=== PATIENT | female | born 1970 | race Caucasian/White ===

== ENCOUNTER → 2018-02-06 06:59 | Outpatient (CLI) | payer OTHER, SELFPAY ==
--- NOTE | 2018-02-06 10:54 | NEURO_ITS ---
NCS and/or EMG Patient Report Ordering Doctor: Mindy Doss DATE OF SERVICE: 02/06/18 This is a bilateral upper extremity nerve conduction study performed on this 47- year-old female with seizures in both hands well his right elbow soreness. She is healthy otherwise with no neck pain or diabetes. Bilateral upper extremity sensory and motor nerve conduction studies are performed demonstrating prolongation of the median motor and sensory distal latencies bilaterally with mild reduction of amplitudes, somewhat worse on the right side. Conduction velocities bilaterally are mildly slowed from the median motor responses as well. The ulnar motor and sensory and radial sensory responses are normal. The median F waves are mildly prolonged compared to the ulnar F waves. Impression: This is an abnormal bilateral upper extremity nerve conduction study consistent with moderate to severe carpal tunnel syndrome at the wrists bilaterally.
== END ==
PROVIDERS: Family Provider Student in an Organized Health Care Education/Training Program; PCP Student in an Organized Health Care Education/Training Program; Visit Provider Nurse Practitioner Adult Health
DX: R20.0 Anesthesia of skin (principal); R20.2 Paresthesia of skin
CPT/HCPCS: 95913

== ENCOUNTER 2020-02-18 16:32 | Emergency (ER) | payer BC, SELFPAY ==
[2020-02-18 16:36] VITALS: BP 124/91; PULSE 71; RESP 25; TEMP 37.9; O2SAT 97; BMI 39.5
--- NOTE | 2020-02-18 16:53 | EKG12_ITS ---
Test Reason : SOB Blood Pressure : / mmHG Vent. Rate : 076 BPM Atrial Rate : 076 BPM P-R Int : 144 ms QRS Dur : 098 ms QT Int : 398 ms P-R-T Axes : 058 026 028 degrees QTc Int : 447 ms Normal sinus rhythm Normal ECG Confirmed by RORO HOWARD ([id number]), associate entertainment editor TOMY MERCADO ([id number] on 02/20/2020 10:15:16 AM Referred By: DREW/LUZ Confirmed By:RORO HOWARD
--- NOTE | 2020-02-18 17:28 | ED.DCSUM_ITS ---
- ER Visit Summary Date of Service: 02/18/20 Chief Complaint: Cough and shortness of breath History of Present Illness: The patient is a 50 F past medical history of prior DVT and history of asthma. Said since January 29 that is nearly 3 weeks ago now she has had intermittent fever of around 100 nonproductive cough and states that she started to get short of breath. Sitting a coworker had similar symptoms before she did but he never got a firm diagnosis. She has been treated recently with antibiotics initially started on Bactrim. Switch to another antibiotic because her primary care physician's office thought she had a sinusitis and a UTI both. And then last was on a third antibiotic Cipro. She has had no obvious COVID exposure. And has had no travel. She does complain of decreased appetite decreased smell and taste. Physical Examination: Middle-aged female no acute distress vital signs stable pulse ox 97% room air no signs of hypoxia. Temperature 100.2. She does not look septic or toxic. She is not dehydrated. H EENT exam unremarkable. Moist with membranes. Posterior pharynx unremarkable. Neck nontender. Lungs dry cough no rales rhonchi or wheezing. Heart regular rhythm no murmur. Abdomen soft nontender. Normal bowel sounds no peritoneal signs. Extremities moves all 4. Calves nontender without edema or cords. Neurologically she is awake and alert. Test Results: Chest x-ray no acute abnormality portable 1 view read both myself and radiologist. CTA of the chest no acute abnormality. No PE read by the radiologist and reviewed by me. EKG normal sinus rhythm rate of 76 no acute signs of LA or ischemia. CBC white count of 11. Hemoglobin 14. No bands. Chemistries unremarkable. Troponin normal. D-dimer was elevated that is why the CAT scan of the chest was done and was read as negative. Influenza AMB negative. I attempted to get the patient COVID tested but was not approved by the state. Emergency Department Course and Treatment: Her eye symptoms. May be viral. I did call the [facility] hotline and she does not meet criteria for COVID-19 testing. She will undergo labs and a chest x-ray. Repeat exam the patient is doing well at 2050 p.m. She is comfortable being discharged home and will follow-up as an outpatient. Treatment Plan: Fluids and rest. Tylenol Motrin for any fever. Follow-up with your doctor. Return if worse. Disposition: Discharge Impression: Viral URI Rule out COVID-19 This note was generated with [employer] dictation software. It may contain incorrect words, spelling, and punctuation that were not noted in review of the chart prior to signing ED Disposition - Plan for ED Patient: Referrals: Adla Flaherty DO [Primary Care Provider] -
--- NOTE | 2020-02-18 17:35 | RAD_ITS ---
STUDY: X-RAY CHEST REASON FOR EXAM: Female, 50 years old. Symptoms OF COVID 19 SINCE JANUARY -- INCREASED SOB TECHNIQUE: Single AP portable view of the chest. COMPARISON: None. FINDINGS: The lungs are clear and expanded. There is no demonstrated pleural abnormality. Normal size heart. Normal mediastinum and ady. Normal visualized pulmonary arteries. Normal visualized aortic arch and descending thoracic aorta. Normal visualized thoracic spine. Normal visualized ribs, clavicles, and shoulders. There is no demonstrated abnormality of the visualized soft tissue structures of the upper abdomen. RAD/Chest 1 View (Portable) IMPRESSION: Normal x-ray examination of the chest. Electronically Signed: Jameel Perea MD at 17:47 EDT , Service support ,
[2020-02-18 17:54] VITALS: O2SAT 95
[2020-02-18 18:18] LABS: Absolute Lymphocyte Count 4.22 X10^3/uL (0.83-4.51); Absolute Neutrophil Count 6.6 X10^3/uL (2.0-7.7); Basophil# 0.06 X10^3/uL; Basophil% 0.5 % (0-1); Eosinophil# 0.11 X10^3/uL; Eosinophils% 0.9 % (0-5); Hematocrit 43.4 % (37-47); Hemoglobin 14.8 g/dL (12.0-15.0); Lymphocyte # 4.22 X10^3/ul (4.0); Lymphocyte % 35.8 % (19-41); Mean Corp Hgb Conc 34.1 g/dL (32-36); Mean Corpuscular Hgb 28.7 pg (27.0-32.0); Mean Corpuscular Volume 84.1 fL (81-99); Mean Platelet Vol. 10.1 fl (6.2-12.0); Monocyte# 0.73 X10^3/uL; Monocyte% 6.2 % (0-10); NRBC Flagged by Analyzer 0 % (0-5); Neutrophil # 6.63 X10^3/uL (2.7-7.7); Neutrophil % 56.3 % (47-70); Platelet Count 269 K/mm3 (150-450); RBC Distribution Width CV 12.7 % (11.6-14.6); RBC Distribution Width SD 38.7 fl (35.1-43.9); Red Blood Count 5.16 M/mm3 (4.2-5.4); White Blood Count 11.8 K/mm3 (4.4-11.0)
[2020-02-18 18:25] LABS: D-Dimer Quantitative (DVT/PE) 3.06 FEU/ug/m (0.27-0.49)
[2020-02-18 18:29] LABS: Anion Gap 8 (5-15); BUN 9 mg/dL (7-18); BUN/Creat Ratio 8.3 RATIO (10-20); Calcium,Total 8.7 mg/dL (8.5-10.1); Chloride 108 mmol/L (98-107); Creatinine, Serum 1.08 mg/dL (0.55-1.02); EST Glomerular Filtration Rate 57 mL/min (>60); Est Glom Filt Rate - Afr Amer 69 mL/min (>60); Estimated Creatinine Clearance 54.41 ml/min; Glucose 88 mg/dL (74-106); Potassium 3.8 mmol/L (3.5-5.1); Sodium Level 138 mmol/L (136-145)
--- NOTE | 2020-02-18 19:14 | CT_ITS ---
STUDY: CTA CHEST REASON FOR EXAM: Female, 50 years old. Short of breath. Elevated d-dimer. RADIATION DOSAGE (If Supplied By Facility): CTDIvol = ( 13.04 ) mGy, DLP = ( 475.13 ) mGycm TECHNIQUE: The examination was performed with the intravenous administration of IV 100mL Isovue-370. Post-processing of the angiographic images was performed, with multiplanar reformation and 3D reconstruction. Individualized dose optimization techniques were used for this CT. COMPARISON: None. FINDINGS: Normal enhancement of the main pulmonary artery and right and left pulmonary arteries. Normal enhancement of the bilateral peripheral pulmonary arteries. There is no demonstrated pulmonary embolism. Normal thoracic aorta and visualized great vessels. There is no demonstrated aortic dissection. Normal heart and pericardium. Normal mediastinum. Normal hilar regions. Normal visualized trachea and bronchi. The lungs are well expanded. Normal pulmonary parenchyma. Normal pleura. Normal chest wall structures. There are degenerative changes of thoracic spine. Limited views of the upper abdomen show what appear to be very numerous cysts throughout the liver as much as 1.[address]/CTA Chest W/WO Contrast IMPRESSION: Normal CTA chest examination, without a demonstrated pulmonary embolism or arterial dissection. No evidence for acute chest disease. Electronically Signed: Jameel Perea MD at 19:49 EDT , Service support ,
[2020-02-18 19:15] VITALS: BP 139/93; PULSE 76; RESP 20; O2SAT 96
--- NOTE | 2020-02-18 20:54 | ED.DEP ---
ED Disposition - Plan for ED Patient: Disposition: Home or Assisted Living Instructions: ED URI Viral Referrals: Adal Flaherty DO [Primary Care Provider] - 3-5 Days if not improving Additional Instructions: Fluids and rest. Follow-up with your doctor if not improving. Alternate Tylenol and Motrin for fever.
[2020-02-18 21:17] VITALS: BP 128/75; PULSE 69; RESP 20; O2SAT 97
== END 2020-02-18 21:18 | disposition home or self-care (01) ==
PROVIDERS: Emergency Provider Emergency Medicine; PCP Student in an Organized Health Care Education/Training Program
DX: J06.9 Acute upper respiratory infection, unspecified (principal); J45.909 Unspecified asthma, uncomplicated
CPT/HCPCS: 71045; 71275; 80048; 84484; 85025; 85379; 87804; 93005; 99284; Q9967; A4216

== ENCOUNTER 2021-11-27 19:09 | Emergency (ER) | payer BC, SELFPAY ==
[2021-11-27 19:10] VITALS: BP 153/94; PULSE 81; RESP 15; TEMP 36.4; O2SAT 99; BMI 39.7
--- NOTE | 2021-11-27 19:34 | EDS_ITS ---
HPI History of Present Illness Chief Complaint: Lower Extremity Injury Informant: patient Onset/Context/Timing Onset: Weeks Context: Gradual Onset Timing: Waxes and wanes Current Severity: Mild Maximum Severity: Moderate Narrative Narrative: Patient presents secondary to right leg pain for the past 2 weeks. She recently was back to work on her feet a lot. She thought this was the case. The last 2 days she has been sitting around resting more and still has significant pain. Her primary concern is a history of DVT in that right leg. She developed a DVT after having an injury along with history of smoking and on oral contraceptive pills. She was on Coumadin for short time. Patient denies chest pain or shortness of breath. [facility] Medical History Anxiety and depression DVT (deep venous thrombosis) Hx of gastroesophageal reflux (GERD) Home Medications albuterol sulfate 2 puff INHALATION Q4H PRN PRN 02/18/20 [History Last Taken Unknown] bupropion HCl 150 mg PO DAILY 02/18/20 [History Last Taken Unknown] buspirone 7.5 mg PO BID 02/18/20 [History Last Taken Unknown] cholecalciferol (vitamin D3) 2,000 unit PO DAILY 02/18/20 [History Last Taken Unknown] escitalopram oxalate 20 mg PO DAILY 02/18/20 [History Last Taken Unknown] fluticasone propionate 1 spray NASAL DAILY 02/18/20 [History Last Taken Unknown] lorazepam 1 mg PO DAILY PRN PRN 02/18/20 [History Last Taken Unknown] multivitamin with folic acid 1 tab PO DAILY 02/18/20 [History Last Taken Unknown] norethindrone (contraceptive) 0.35 mg PO DAILY 02/18/20 [History Last Taken Unknown] omeprazole 20 mg PO DAILY 02/18/20 [History Last Taken Unknown] Allergy/AdvReac Type Severity Reaction Status Date / Time cephalexin Allergy Chest Verified 11/27/21 19:10 tightness erythromycin base Allergy Chest Verified 11/27/21 19:10 tightness phenylephrine Allergy Chest Verified 11/27/21 19:10 tightness Surgical History History of carpal tunnel surgery History of hernia repair Social History Smoking Status: Former smoker ROS ROS ED Constitutional Constitutional ED: Denies chills or fever(s) Eyes Eyes: Denies change in vision ENT ENT ED: Denies sore throat Cardiovascular Cardiovascular: Denies chest pain Respiratory/Chest Respiratory/Chest: Denies cough or dyspnea Gastrointestinal Gastrointestinal: Denies abdominal pain, diarrhea, nausea or vomiting Genitourinary Genitourinary ED: Denies dysuria Musculoskeletal Musculoskeletal: Reports arthralgias and myalgias; Denies back pain Integumentary Denies rash Neurologic Neurologic: Denies headache(s), paresthesias or weakness Allergic/Immunologic Allergic/Immunologic ED: Denies urticaria EXAM Physical Exam Const Vital Signs: 11/27/21 19:10 Temperature 97.5 F L Temperature Source Temporal Pulse Rate 81 Respiratory Rate 15 Blood Pressure 153/94 H Blood Pressure Mean 113 Pulse Ox 99 Oxygen Delivery Method Room Air Positive well nourished and well developed General Appearance ED: well developed HEENT Reports moist mucous membranes Eyes PERRL and EOMs intact bilaterally Neck supple Chest Wall inspection of chest normal and palpation of chest normal Resp normal respiratory effort and clear to auscultation bilaterally Cardio regular rate and regular rhythm GI normal to inspection, nondistended, normoactive bowel sounds and non-tender Palpation: soft Extremity Extremity Narrative: Mild muscular tenderness throughout the distal right thigh and right calf. No significant edema when compared to the left side. Strong distal pulses. No erythema or skin changes. Neuro oriented x3 Sensorium / Orientation: alert Psych mental status grossly normal Skin no rashes or lesions noted MDM MDM MDM Narrative Medical decision making narrative: Patient presents on a Monday evening for evaluation but I do not have ultrasound available. Patient be given a dose of Lovenox tonight and will be called back in tomorrow for ultrasound of the lower extremity. Patient voices understanding and agreement. Discharge Plan Triage Chief Complaint: Lower Extremity Injury ED Provider: Reyna Morrell Dx/Rx/DC Orders Clinical Impression: Acute pain of right lower extremity Instructions: ED Contusion, Lower Extremity Prescriptions: No Action lorazepam 1 MG tablet 1 mg PO DAILY PRN PRN (Reason: Anxiety) RF: 0 albuterol sulfate 1 PUFF inhaler 2 puff inhalation Q4H PRN PRN (Reason: Sob &/Or Wheezing) RF: 0 norethindrone (contraceptive) 0.35 MG tablet 0.35 mg PO DAILY RF: 0 fluticasone propionate 1 SPRAY spray,suspension 1 spray NASAL DAILY RF: 0 buspirone 15 MG tablet 7.5 mg PO BID RF: 0 escitalopram oxalate 20 MG tablet 20 mg PO DAILY RF: 0 bupropion HCl 150 MG tablet extended release 24 hr 150 mg PO DAILY RF: 0 omeprazole 20 MG tablet,delayed release (DR/EC) 20 mg PO DAILY RF: 0 multivitamin with folic acid 1 TABLET tablet 1 tab PO DAILY RF: 0 cholecalciferol (vitamin D3) 2,000 UNIT tablet,chewable 2,000 unit PO DAILY RF: 0 Other Ambulatory Orders: Venous Duplex US, Unilateral (Routine) Facility: [facility] - Location: [facility] Ordered By: Dr. Reyna Morrell Primary Care Provider: Adal Flaherty Referrals: Adal Flaherty DO [Primary Care Provider] - 1 Week if not improving Activity Restrictions/Additional Instructions: As discussed, you will receive a phone call from the hospital tomorrow morning to come in for ultrasound of your leg. Disposition Disposition: Home, Self Care
[2021-11-27] MEDS: Enoxaparin 100 MG/ML Syringe SC (19:50)
== END 2021-11-27 19:57 | disposition home or self-care (01) ==
LOC: ED 19:46
PROVIDERS: Emergency Provider Emergency Medicine; PCP Student in an Organized Health Care Education/Training Program; Visit Provider Emergency Medicine
DX: M79.604 Pain in right leg (principal); Z87.891 Personal history of nicotine dependence; Z86.718 Personal history of other venous thrombosis and embolism
CPT/HCPCS: 96372; 99282

== ENCOUNTER 2021-11-28 10:47 | Outpatient (CLI) | payer BC, SELFPAY ==
--- NOTE | 2021-11-28 11:11 | VDLE_ITS ---
Reason For Study: pain RIGHT GSV is normal. CFV is compressible, spontaneous, phasic, competent and demonstrates normal augmentation. FV is compressible, spontaneous, phasic, competent and demonstrates normal augmentation. POP V is compressible, spontaneous, phasic, competent and demonstrates normal augmentation. T/P Trunk is compressible. PTV is compressible. RT PerV is compressible. Procedure This is a venous duplex using B-mode, color flow and spectral Doppler. Exam performed in department. The exam was abbreviated due to the COVID 19 protocol. The exam was diagnostic. VL/Venous Duplex US, Unilateral Interpretation Summary There is no evidence of right lower extremity deep vein thrombosis. Right great saphenous vein appears patent and compressible segmentally. Abbreviated COVID-19 protocol util ized Ordering Physician: Reyna Morrell Performed By: Devin Swanson RVT
== END 2021-11-28 23:59 | disposition short-term general hospital (02) ==
LOC: US 10:57 → VL 11:05
PROVIDERS: PCP Student in an Organized Health Care Education/Training Program; Visit Provider Emergency Medicine
DX: M79.604 Pain in right leg (principal)
CPT/HCPCS: 93971